=== PATIENT | male | born 1940 | race Caucasian/White ===

== ENCOUNTER 2021-11-16 20:13 | Emergency (ER) | payer OTHER ==
[2021-11-16] MEDS ORDERED: MECLIZINE HCL 25 MG TABLET (FP) PO ONE (20:40)
[2021-11-16] MEDS ORDERED: MECLIZINE HCL 25 MG TABLET (FP) ONE (20:45)
[2021-11-16 20:59] VITALS: BP 131/53; PULSE 45; TEMP 98.1; BMI 30.7
[2021-11-16] MEDS ORDERED: MECLIZINE HCL 25 MG TABLET (FP) PO PRN (21:39)
[2021-11-16] MEDS ORDERED: MAGNESIUM CITRATE 300 ML BOTTLE PO ONE (21:40)
== END 2021-11-16 22:00 | disposition home or self-care (01) ==
LOC: FER 20:13
DX: K59.00 Constipation, unspecified (principal)
CPT/HCPCS: 74019-TC-FY; 99283-25

== ENCOUNTER 2022-07-13 10:27 | Emergency (ER) | payer OTHER ==
[2022-07-13 10:36] VITALS: TEMP 98.4; BMI 34.4
[2022-07-13] MEDS ORDERED: MECLIZINE HCL 25 MG TABLET (FP) PO ONE (10:59)
[2022-07-13] MEDS ORDERED: MECLIZINE HCL 25 MG TABLET (FP) ONE (11:30)
[2022-07-13 11:46] LABS: ALBUMIN 3.7 g/dl (3.4-5.0); BILIRUBIN,TOTAL 0.8 mg/dl (0.2-1); CALCIUM 8.8 mg/dl (8.5-10); CREATININE 2.1 mg/dl (0.55-1.3); TOT PROT 7.1 g/dl (6.4-8.2)
[2022-07-13 11:48] LABS: HEMATOCRIT 34.3 % (35.4-49); HEMOGLOBIN 11.9 G/dL (11.7-16.9); MCHC 34.7 g/dl (32.0-35.9); MEAN CELL VOLUME 92.1 fl (80-96); MEAN PLT VOLUME 9.3 fl (7.5-11.1); PLATELET COUNT 315.2 10^3/uL (134-434); RBC 3.72 10^6/uL (4.00-5.60); RDW 14.1 % (11.9-15.9); WHITE BLOOD COUNT 13.9 10^3/uL (4.0-10.8)
[2022-07-13 12:23] LABS: EPITHELIAL CELLS FEW /hpf
[2022-07-13 12:40] LABS: PLATELET ESTIMATE ADEQUATE
[2022-07-13] MEDS ORDERED: CEFTRIAXONE 1,000 MG in DEXTROSE 5%-WATER - 50 ML IVPB ONE (13:08)
[2022-07-13] MEDS ORDERED: cefTRIAXone SODIUM 1 GM VIAL ONE (13:16)
[2022-07-13 13:32] VITALS: BP 122/76; PULSE 78; RESP 16
== END 2022-07-13 13:35 | disposition home or self-care (01) ==
LOC: FER 10:27
PROC: 3E033GC Introduction of Other Therapeutic Substance into Peripheral Vein, Percutaneous Approach (ICD-10-PCS; principal; 2022-07-13)
DX: N30.00 Acute cystitis without hematuria (principal); L03.116 Cellulitis of left lower limb
CPT/HCPCS: 0241U-QW; 36415; 70450-TC; 71045-TC-FY; 80053; 81003; 81015; 84484; 85027; 87086; 87186; 93005; 99285-25

== ENCOUNTER 2022-07-26 19:13 | Emergency (ER) | payer OTHER ==
[2022-07-26 19:54] VITALS: BP 160/92; PULSE 93; RESP 18; TEMP 98; BMI 34.1
[2022-07-26] MEDS ORDERED: ACETAMINOPHEN INJECTION 100 ML IVPB ONE (20:14)
[2022-07-26] MEDS ORDERED: ACETAMINOPHEN 1000 MG/100 ML BAG IVPB ONE (20:17)
[2022-07-26 20:35] LABS: HEMATOCRIT 35.9 % (35.4-49); HEMOGLOBIN 12.4 G/dL (11.7-16.9); MCH 31.4 pg (25.7-33.7); MCHC 34.5 g/dl (32.0-35.9); MEAN CELL VOLUME 91.2 fl (80-96); MEAN PLT VOLUME 9.2 fl (7.5-11.1); PLATELET COUNT 358.2 10^3/uL (134-434); RBC 3.94 10^6/uL (4.00-5.60); RDW 14.7 % (11.9-15.9); WHITE BLOOD COUNT 8.8 10^3/uL (4.0-10.8)
[2022-07-26 20:42] LABS: ALBUMIN 4.2 g/dl (3.4-5.0); BILIRUBIN,TOTAL 0.9 mg/dl (0.2-1); CALCIUM 10.3 mg/dl (8.5-10); CREATININE 1.8 mg/dl (0.55-1.3); TOT PROT 7.7 g/dl (6.4-8.2)
[2022-07-26 21:10] LABS: PLATELET ESTIMATE ADEQUATE
[2022-07-26] MEDS ORDERED: LIDOCAINE HCL 2% JELLY 10 ML CARTRIDGE ONE (22:47)
== END 2022-07-26 23:55 | disposition home or self-care (01) ==
LOC: FER 19:13
PROC: 3E033GC Introduction of Other Therapeutic Substance into Peripheral Vein, Percutaneous Approach (ICD-10-PCS; principal; 2022-07-26)
DX: K59.00 Constipation, unspecified (principal); R33.9 Retention of urine, unspecified
CPT/HCPCS: 36415; 74176-TC; 80053; 81003; 85027; 87086; 99285-25